=== PATIENT | male | born 1950 | race Caucasian/White ===

== ENCOUNTER 2017-02-21 17:31 | Emergency (ER) | payer OTHER | END 2017-02-21 20:14 | disposition home or self-care (01) | LOC: ER 17:31 | DX: J06.9 Acute upper respiratory infection, unspecified (principal); G89.29 Other chronic pain; M54.5 Low back pain; I10 Essential (primary) hypertension; J44.9 Chronic obstructive pulmonary disease, unspecified; Z79.891 Long term (current) use of opiate analgesic; Z79.899 Other long term (current) drug therapy ==